=== PATIENT | male | born 2000 | race Caucasian/White ===

== ENCOUNTER 2021-04-06 12:58 | Inpatient (IN) ==
[2021-04-06 14:34] LABS: Basophils # (auto) 0.04 K/uL (0-0.2); Basophils % (auto) 0.3 %; Eosinophils # (auto) 0.24 K/uL (0-0.5); Eosinophils % (auto) 1.6 %; Hematocrit (blood only) 43.8 % (42-52); Hemoglobin 15.2 g/dL (14.0-18.0); Immature Granulocytes # (auto) 0.07 K/uL (0.00-0.02); Immature Granulocytes % (auto) 0.5 %; Lymphocytes # (auto) 3.97 K/uL (1.2-3.4); Lymphocytes % (auto) 26.8 %; Mean Corpuscular Hemoglobin 29.6 pg (25-34); Mean Corpuscular Hgb Conc 34.7 g/dL (32-36); Mean Corpuscular Volume 85.4 fL (80-100); Monocytes # (auto) 1.07 K/uL (0.11-0.59); Monocytes % (auto) 7.2 %; Neutrophils # (auto) 9.44 K/uL (1.4-6.5); Neutrophils % (auto) 63.6 %; Platelet Count 404 K/uL (130-400); RDW Coefficient of Variation 12.3 % (11.5-14.5); RDW Standard Deviation 37.9 fL (36.4-46.3); Red Blood Count 5.13 M/uL (4.7-6.1); White Blood Count 14.83 K/uL (4.8-10.8)
[2021-04-06 14:49] LABS: Albumin Level 3.5 gm/dl (3.4-5.0); BUN Creatinine Ratio 9.4 (10-20); Calcium 8.7 mg/dl (8.5-10.1); Creatinine Clr Calc Pharmacy 106.3 ml/min; Est GFR (African American) 77.8 ml/min; Est GFR (Non-African American) 67.2 ml/min
[2021-04-06 14:52] LABS: Acetaminophen < 2 ug/ml (10-30); Albumin Globulin Ratio 0.8 (0.9-2); Bilirubin,Total 0.3 mg/dl (0.2-1); Globulin 4.2 gm/dl (2.5-4.0); Salicylate < 1.7 mg/dl (2.8-20); Total Protein 7.7 gm/dl (6.4-8.2)
[2021-04-06] MEDS ORDERED: LIDOCAINE/EPINEPH/TETRACAINE 1 EA SYR EXT STA (14:57)
[2021-04-06] MEDS ORDERED: DIPHTHERIA/TETANUS/PERTUSSIS 0.5 ML SYR/VIAL IM ONE (15:01)
[2021-04-06] MEDS ORDERED: XYLOCAINE 1%/SOD BICARB 20 ML VIAL INFIL ONE (15:08)
[2021-04-06 15:44] LABS: Appearance Urine Clear (Clear); Bilirubin Urine Negative (Negative); Blood Urine Negative (Negative); Color Urine Yellow; Glucose Urine UA Negative (Negative); Ketones Urine Negative (Negative); Leukocyte Esterase Urine Negative (Negative); Nitrite Urine Negative (Negative); Protein Urine Negative (Negative); Specific Gravity Urine 1.021 (1.000-1.030); Urobilinogen Urine Negative (Negative)
[2021-04-06 16:19] LABS: Amphetamines+Metham, Urine Neg (Neg); Barbiturates, Urine Neg (Neg); Benzodiazepine, Urine Neg (Neg); Cocaine, Urine Neg (Neg); MDMA (Ecstacy), Urine Neg (Neg); Methadone, Urine Neg (Neg); Opiate, Urine Neg (Neg); Phencyclidine, Urine Neg (Neg)
--- NOTE | 2021-04-06 16:34 | Emergency Department Note ---
Impression & Plan Mood disorder, Intentional hydroxyzine overdose, Laceration of left forearm, Multiple abrasions ED Provider Note INFORMANT: Patient ED PROVIDER(S): Lopez Marino MD CHIEF COMPLAINT: Mental health evaluation PLAN: Disposition: Admitted to 3 S. Condition: Good Outpatient prescription management: none Referral: None MEDICAL DECISION MAKING: Patient presented because of need for mental health evaluation. He had cut himself and took an intentional overdose. Poison control was consulted and they recommended 6 hours of observation. Patient was hemodynamically stable for this time. His work-up including ECG and blood work was unremarkable except for a mild leukocytosis which I suspect is a stress response. Patient drug screen did reveal marijuana.. The patient had his laceration repaired by DAVINA Capellan. Please see his note. Patient was evaluated by the ER psychiatric caser up. Inpatient treatment was recommended. The patient was voluntary. Consultation was made with 3 S. Patient was evaluated and admitted for further management. Triage Nursing notes reviewed and agree them. Vital Signs: reviewed and remarkable for no significant abnormalities Differential diagnosis: Mood disorder, infection, hypoglycemia, electrolyte abnormalities, cardiac sources, intracerebral event, toxicologic, trauma, neurologic, as well as other pathologies. Diagnostics interpreted by me: ECG: Twelve-lead ECG revealed normal sinus rhythm at [address] elevation or depression. No PACs or PVCs. QTc interval 446 ms. Normal axis. Cardiac Monitoring: Cardiac monitoring ordered by me: The patient was placed on continuous cardiac monitoring and observed. It revealed a normal sinus rhythm at 69 beats per minute without ectopy or evidence of dysrhythmia. Imaging studies: Deferred HPI: The patient is a 20 year old male who presents to the Emergency Room with complaints of mental health evaluation. This started today and is described as the patient seeming depressed. He was found in the field by friends and cut his left forearm and right face with a box spinner. The patient also states he took 10 hydroxyzine. He feels like there is no point to anything. He was not sure if he was trying to harm himself exactly and is vague on that information. Patient has a history of anxiety and depression but no hospitalizations. The patient also notes the following associated symptoms, none. The patient has been given no medication for relieving factors. Current pain is rated as 0/10. Denies alcohol or drug use. No other ingestions. Pt denies LOC, headache, feve rs, chills, diaphoresis, visual changes, neck pain, chest pain, breathing difficulties, nausea, vomiting, abdominal pain, back pain, melena, hematochezia, urinary symptoms, numbness, weakness, lymphadenopathy, rash, or other complaints. ROS: See above HPI for pertinent positives & negatives. A total of 10 systems reviewed and were otherwise negative. PAST MEDICAL HISTORY:See Below , anxiety, depression PAST SURGICAL HISTORY:See Below, FAMILY HISTORY:See Below SOCIAL HISTORY:See Below, denies alcohol use HOME MEDICATIONS:See Below ALLERGIES:See Below VITALS:See Below PHYSICAL EXAMINATION: GENERAL: Awake, alert, depressed-appearing, in no distress HENT: Normocephalic, atraumatic except to superficial scratches to the right cheek. Oropharynx unremarkable. EYES: Normal conjunctiva. Sclera non-icteric. NECK: Inspection normal. Non-tender. Supple. No nuchal rigidity. FROM. No masses. RESPIRATORY: Clear to auscultation. No wheezes. No rales. Normal respiratory effort. CARDIAC: Normal rate. Normal rhythm. No murmurs. No rubs. Extremities warm and well perfused. Pulses equal. No JVD. GI: Soft, non-distended. No tenderness to palpation. No rebound or guarding. No masses. RECTAL: Deferred. MUSCULOSKELETAL: Multiple linear abrasions that are superficial on the left forearm. 1 deep laceration noted across the left forearm. chest examination reveals no tenderness. The back is symmetrical on inspection without obvious abnormality. There is no CVA tenderness to palpation. No joint edema. LOWER EXTREMITIES: Calves are equal size bilaterally and non-tender. No edema. No discoloration. NEURO: Normal sensorium. No sensory or motor deficits noted. SKIN: No rash or jaundice noted. PSYCH: No HI. Depressed mood and flat affect. Vague SI. Lopez Marino MD Past Med/Surg History Social History Smoking Status: Never smoker Preferred Language: Yakut Communication Ability: Effective Beliefs That Will Affect Care: None Feels Safe at Home: Yes Assistive Devices: None Allergies Allergies Allergy/AdvReac Type Severity Reaction Status Date / Time cephalexin AdvReac Intermediate GI Verified 05/16/13 19:54 UPSET/DIARRHEA [id number] Allergy Unknown Unknown Uncoded 04/06/21 16:51 Home Meds Home Medications Medication Instructions Recorded Confirmed No Known Home Medications 04/06/21 04/06/21 Results & Data (ED) Vital Signs Vital Signs - 24 hr 04/06/21 13:03 04/06/21 13:05 04/06/21 13:31 Pulse Rate 105 H 82 Pulse Rate from SpO2 Sensor 106 H 84 Pulse Rhythm Respiratory Rate 17 21 Blood Pressure 168/95 H 119/64 Blood Pressure Mean 119 82 Pulse Oximetry 96 96 Oxygen Delivery Method Room Air Room Air Sepsis Recent Fever Within 48 Hours No Sepsis New/Unexplained Change in Mental Status No Sepsis Action Taken by Nursing No Action Required 04/06/21 14:00 04/06/21 14:02 04/06/21 15:00 Pulse Rate 71 71 63 Pulse Rate from SpO2 Sensor 71 65 Pulse Rhythm Regular Respiratory Rate 15 18 23 Blood Pressure 131/77 132/86 Blood Pressure Mean 95 101 Pulse Oximetry 96 95 98 Oxygen Delivery Method Room Air Room Air Sepsis Recent Fever Within 48 Hours Sepsis New/Unexplained Change in Mental Status Sepsis Action Taken by Nursing 04/06/21 15:30 04/06/21 16:00 04/06/21 16:30 Pulse Rate 67 64 58 L Pulse Rate from SpO2 Sensor 66 64 58 L Pulse Rhythm Respiratory Rate 16 20 16 Blood Pressure 144/90 H 139/74 131/72 Blood Pressure Mean 108 95 91 Pulse Oximetry 100 98 97 Oxygen Delivery Method Sepsis Recent Fever Within 48 Hours Sepsis New/Unexplained Change in Mental Status Sepsis Action Taken by Nursing 04/06/21 17:00 04/06/21 17:30 04/06/21 18:00 Pulse Rate 64 55 L 74 Pulse Rate from SpO2 Sensor 62 56 L 76 Pulse Rhythm Respiratory Rate 19 18 18 Blood Pressure 134/66 130/62 127/73 Blood Pressure Mean 88 84 91 Pulse Oximetry 97 97 96 Oxygen Delivery Method Sepsis Recent Fever Within 48 Hours Sepsis New/Unexplained Change in Mental Status Sepsis Action Taken by Nursing 04/06/21 18:30 Pulse Rate 65 Pulse Rate from SpO2 Sensor 66 Pulse Rhythm Respiratory Rate 19 Blood Pressure 120/63 Blood Pressure Mean 82 Pulse Oximetry 98 Oxygen Delivery Method Sepsis Recent Fever Within 48 Hours Sepsis New/Unexplained Change in Mental Status Sepsis Action Taken by Nursing Laboratory Data Result diagrams: 04/06/21 14:05 04/06/21 14:05 Lab Results 04/06/21 04/06/21 04/06/21 Range/Units 14:05 14:05 14:05 WBC 14.83 H (4.8-10.8) K/uL RBC 5.13 (4.7-6.1) M/uL Hgb 15.2 (14.0-18.0) g/dL Hct 43.8 (42-52) % MCV 85.4 (80-100) fL MCH 29.6 (25-34) pg MCHC 34.7 (32-36) g/dL RDW Std Deviation 37.9 (36.4-46.3) fL RDW Coeff of Dang 12.3 (11.5-14.5) % Plt Count 404 H (130-400) K/uL MPV 10.0 (7.4-10.4) fL Immature Gran % (Auto) 0.5 % Neut % (Auto) 63.6 % Lymph % (Auto) 26.8 % [place] % (Auto) 7.2 % Eos % (Auto) 1.6 % Baso % (Auto) 0.3 % Neut # (Auto) 9.44 H (1.4-6.5) K/uL Lymph # (Auto) 3.97 H (1.2-3.4) K/uL [place] # (Auto) 1.07 H (0.11-0.59) K/uL Eos # (Auto) 0.24 (0-0.5) K/uL Baso # (Auto) 0.04 (0-0.2) K/uL Immature Gran # (Auto) 0.07 H (0.00-0.02) K/uL Sodium 138 (136-145) mmol/L Potassium 4.0 (3.5-5.1) mmol/L Chloride 106 (98-107) mmol/L Carbon Dioxide 25 (21-32) mmol/L Anion Gap 7.0 (3-11) BUN 14 (7-18) mg/dl Creatinine 1.48 H (0.6-1.4) mg/dl Est Cr Clr Drug Dosing 106.3 ml/min Est GFR ( Amer) 77.8 ml/min Est GFR (Non-Af Amer) 67.2 ml/min BUN/Creatinine Ratio 9.4 L (10-20) Glucose 88 (70-99) mg/dl Calcium 8.7 (8.5-10.1) mg/dl Total Bilirubin 0.3 (0.2-1) mg/dl AST 25 (15-37) U/L ALT 54 (12-78) U/L Alkaline Phosphatase 83 (45-117) U/L Total Protein 7.7 (6.4-8.2) gm/dl Albumin 3.5 (3.4-5.0) gm/dl Globulin 4.2 H (2.5-4.0) gm/dl Albumin/Globulin Ratio 0.8 L (0.9-2) Urine Color Urine Appearance (Clear) Urine pH (4.5-7.5) Ur Specific [place] (1.000-1.030) Urine Protein (Negative) Urine Glucose (UA) (Negative) Urine Ketones (Negative) Urine Blood (Negative) Urine Nitrite (Negative) Urine Bilirubin (Negative) Urine Urobilinogen (Negative) Ur Leukocyte Esterase (Negative) Salicylates < 1.7 L (2.8-20) mg/dl Urine Opiates Screen (Neg) Ur Methadone, Qual (Neg) Acetaminophen < 2 L (10-30) ug/ml Urine Barbiturates (Neg) Ur Phencyclidine (PCP) (Neg) U Amphetamin/Meth Scrn (Neg) MDMA (Ecstasy) Screen (Neg) U Benzodiazepines Scrn (Neg) Ur Cocaine Metabolite (Neg) U Marijuana (THC) Screen (Neg) Ethyl Alcohol mg/dL (0-3) mg/dl 04/06/21 04/06/21 04/06/21 Range/Units 14:05 15:15 15:15 WBC (4.8-10.8) K/uL RBC (4.7-6.1) M/uL Hgb (14.0-18.0) g/dL Hct (42-52) % MCV (80-100) fL MCH (25-34) pg MCHC (32-36) g/dL RDW Std Deviation (36.4-46.3) fL RDW Coeff of Dang (11.5-14.5) % Plt Count (130-400) K/uL MPV (7.4-10.4) fL Immature Gran % (Auto) % Neut % (Auto) % Lymph % (Auto) % [place] % (Auto) % Eos % (Auto) % Baso % (Auto) % Neut # (Auto) (1.4-6.5) K/uL Lymph # (Auto) (1.2-3.4) K/uL [place] # (Auto) (0.11-0.59) K/uL Eos # (Auto) (0-0.5) K/uL Baso # (Auto) (0-0.2) K/uL Immature Gran # (Auto) (0.00-0.02) K/uL Sodium (136-145) mmol/L Potassium (3.5-5.1) mmol/L Chloride (98-107) mmol/L Carbon Dioxide (21-32) mmol/L Anion Gap (3-11) BUN (7-18) mg/dl Creatinine (0.6-1.4) mg/dl Est Cr Clr Drug Dosing ml/min Est GFR ( Amer) ml/min Est GFR (Non-Af Amer) ml/min BUN/Creatinine Ratio (10-20) Glucose (70-99) mg/dl Calcium (8.5-10.1) mg/dl Total Bilirubin (0.2-1) mg/dl AST (15-37) U/L ALT (12-78) U/L Alkaline Phosphatase (45-117) U/L Total Protein (6.4-8.2) gm/dl Albumin (3.4-5.0) gm/dl Globulin (2.5-4.0) gm/dl Albumin/Globulin Ratio (0.9-2) Urine Color Yellow Urine Appearance Clear (Clear) Urine pH 6.0 (4.5-7.5) Ur Specific [place] 1.021 (1.000-1.030) Urine Protein Negative (Negative) Urine Glucose (UA) Negative (Negative) Urine Ketones Negative (Negative) Urine Blood Negative (Negative) Urine Nitrite Negative (Negative) Urine Bilirubin Negative (Negative) Urine Urobilinogen Negative (Negative) Ur Leukocyte Esterase Negative (Negative) Salicylates (2.8-20) mg/dl Urine Opiates Screen Neg (Neg) Ur Methadone, Qual Neg (Neg) Acetaminophen (10-30) ug/ml Urine Barbiturates Neg (Neg) Ur Phencyclidine (PCP) Neg (Neg) U Amphetamin/Meth Scrn Neg (Neg) MDMA (Ecstasy) Screen Neg (Neg) U Benzodiazepines Scrn Neg (Neg) Ur Cocaine Metabolite Neg (Neg) U Marijuana (THC) Screen Pos H (Neg) Ethyl Alcohol mg/dL < 3.0 (0-3) mg/dl Administered Medications Lorazepam (Lorazepam 0.5 Mg Tab) 0.5 mg PO Q8 PRN PRN Reason: Anxiety Stop: 05/06/21 20:06 Last Admin: 04/06/21 20:55 Dose: 0.5 mg Documented by: [id number] Discontinued Medications Diphtheria/Pertussis/Tetanus Vacc (Diphtheria/Tetanus/Pertussis 0.5 Ml Syr/Vial) 0.5 ml IM .ONCE ONE Stop: 04/06/21 15:02 Last Admin: 04/06/21 15:37 Dose: 0.5 ml Documented by: [id number] Lidocaine (Lidocaine/Epineph/Tetracaine 1 Ea Syr) 1 ea EXT NOW STA Stop: 04/06/21 14:58 Last Admin: 04/06/21 18:56 Dose: Not Given Documented by: [id number] Lidocaine HCl (Xylocaine 1%/Sod Bicarb 20 Ml Vial) 20 ml INFIL NOW ONE Stop: 04/06/21 15:09 Last Admin: 04/06/21 15:38 Dose: 20 ml Documented by: [id number] Discharge Plan Visit Data Chief Complaint: Mental Health Evaluation Stated Complaint: OVERDOSE, MHID ED Provider: Lopez Marino Discharge Problem: Mood disorder, Intentional hydroxyzine overdose, Laceration of left forearm, Multiple abrasions Patient Disposition: Admitted As Inpatient Discharge Instructions Interventions: ED Discharge Assessment Last Done: 04/06/21 19:46
--- NOTE | 2021-04-06 16:42 | Emergency Department Note ---
ED Visit Note 20-year-old male who I was asked by Dr. Marnio, ED attending physician, to perform a left forearm laceration repair. The patient cut his arm with a razor. He does have a history of cutting. Please see Dr. Marino's dictation for further treatment and final disposition. PROCEDURE NOTE: Examination of the left forearm shows parallel linear lacerations, consistent with cutting. The proximal most laceration is 6 cm in length with mild gaping. No active bleeding or hematoma noted. Patient provided verbal consent for laceration repair under local anesthesia. Using buffered lidocaine 1% without epinephrine, good local anesthesia was administered. Peripheral tissue was then cleansed with iodine, then the wound was irrigated with normal saline. Exploration of the wound does not show any obvious involvement of the underlying musculature or tendons. The wound was then approximated using running 4-0 nylon, occasionally interrupted sutures. The patient tolerated the procedure well with minimal blood loss.
[2021-04-06] MEDS ORDERED: ACETAMINOPHEN 325 MG TAB PO PRN (19:33)
[2021-04-06] MEDS ORDERED: BISMUTH SUBSALICYLATE LIQD 236 ML PO PRN (19:33)
[2021-04-06] MEDS ORDERED: MAGNESIUM HYDROXIDE SUSP 30 ML UDC PO PRN (19:33)
[2021-04-06] MEDS ORDERED: ALUMINUM/MAGNESIUM SUSP 30 ML UDC PO PRN (19:33)
[2021-04-06] MEDS ORDERED: hydrOXYzine HCl 25 MG TAB PO PRN ×2 (19:33)
[2021-04-06] MEDS ORDERED: SODIUM CHLORIDE 0.65% NA SOLN 45 ML (OCEAN) PRN (19:33)
[2021-04-06] MEDS ORDERED: LORazepam 0.5 MG TAB PO PRN (20:07)
[2021-04-07] MEDS ORDERED: LORazepam 1 MG TAB PO PRN (13:48)
[2021-04-07] MEDS ORDERED: FLUoxetine HCL 10 MG CAP PO ONE (14:15)
--- NOTE | 2021-04-07 15:14 | Electrocardiogram Report ---
Test Reason : Blood Pressure : / mmHG Vent. Rate : 075 BPM Atrial Rate : 075 BPM P-R Int : 142 ms QRS Dur : 088 ms QT Int : 400 ms P-R-T Axes : 043 013 033 degrees QTc Int : 446 ms Normal sinus rhythm Normal ECG No previous ECGs available Confirmed by Terrance Forde ([id number]) on 04/07/2021 3:14:36 PM Referred By: Confirmed By:Rainer Forde
--- NOTE | 2021-04-07 15:49 | History & Physical ---
Date of Service April 07, 2021 Impression / Recommendations Impression This is a 20-year-old male with history of anxiety depression who presents to our services following a suicide attempt. It appears that patient may have an OCD-like component to his mental issues at this time. He is agreeable to start Prozac medication and titrate up to higher dosages. (1) Mood disorder: The patient was admitted to the [facility] ([facility]) on every 15 minute checks (behavioral with suicide precautions for safety. The patient will participate in group, recreational, and milieu therapies and will be offered additional individual and family sessions as clinically appropriate. 04/07/2021we will start patient on 10 mg of Prozac today, increase to 20 mg p.o. every morning tomorrow. We will also add lorazepam to her regimen on a as needed basis to address his anxiety while up titrating the dose of SSRI. Protective Factors Assessment Employed: Yes Psychiatric History Identifying Data ACOSTA KENT is a 20-year-old M who currently lives in [place] with his father, has a history of anxiety and depression, and was admitted on 04/06/21 19:33 on a 201 voluntary commitment for suicide attempt. Chief Complaint "I was having a lot of anxious thoughts". History of Present Illness HPI as per case management " Met with Officer Anny of [facility], reports police were called to the community health's residence because of an overdose. Officer requested to complete petitioning statement, signing Box A and it reads as follows: "04/06/21 at 12:27PM I received a police 911 call from Acosta Kent's friend named Terell Almonte. Suzy received a text message from Westley stating he overdosed on medication. I then met with Westley at his residence. Westley appeared groggy and confused. He said he had taken medication (I did not hear what the medication was). Westley also had bloody cuts on his right cheek that he said he made with a slip box changer." Met with the patient to complete Psychiatric Mental Health Evaluation. The patient admits his overdose and cutting his arm were suicidal gestures (scored a 9 on his Suicide Assessment). He reports stressor of work (started at [employer] about a week ago) and reports depressive symptom of anhedonia. The patient reports poor appetite and sleep (reports has always been a bad sleeper) and couldnt quantify the symptoms or number of hours of sleep he gets each night. He reports he will also sleep during the day which affects his sleep at night. The patient reports daily but not constant anxiety and reports he really cant describe how he feels when hes anxious (reports less often than daily panic attacks). The patient denies hallucinations and delusional thinking, drug and alcohol use (tested positive for marijuana), smoking, homicidal ideation and history of abuse. The patient reports having providers through [facility] (used to see Cameron Arvizu but she left and sees Nikki for therapy). Dr. Marino updated and recommendation is for inpatient treatment. Spoke with the patient and he is willing for treatment at this time." Upon evaluation this morning, patient endorses the above information is accurate. He states that he is always struggled with social anxiety from a young age. 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 He reports waking up having felt anxious, and began cutting his arm which point one of the cuts became too deep, at that point patient felt that he was no longer in control and may due to the cut, he then went on to swallow 10 tablets of Vistaril medication. Patient then offered to complete the statement that he had been researching overdoses on Vistaril and the potential for it to put him into a coma. Patient states he took the tablets all at the same time without drinking water. He is unable to identify a trigger for his anxiety, but he does state that he does have worrisome sense of behavior with the addition of some compulsions. Patient gives an example of "I will have known that I close the door, but will keep getting up to check to make sure that I closed the door." He goes on to add that he recognizes that his thoughts are not valid or logical, but reports that he is unable to not have them. He reports prior med trials with Zoloft, Lexapro, Wellbutrin. He reports poor response to these medications. He denies any psychosis or paranoia. He denies any manic symptoms. He denies any childhood trauma aside from some bullying in grade school. He reports a poor relationship with both of his parents as he states he does not talk to them much, but denies any active or ongoing issues. He denies any active substance use, reports using marijuana approximately once per month. Past Psychiatric History Current Psychiatric Diagnosis: mood disorder with intentional overdose Describe Attempts in the Past: Overdose and cutting today. Allergies Allergy/AdvReac Type Severity Reaction Status Date / Time cephalexin AdvReac Intermediate GI Verified 05/16/13 19:54 UPSET/DIARRHEA [id number] Allergy Unknown Unknown Uncoded 04/06/21 16:51 Home Medications Medication Instructions Recorded Confirmed Type hydroxyzine HCl 25 mg tablet 25 - 50 mg PO Q6 PRN 04/07/21 04/07/21 History Family History Family History of: Depression and Anxiety Family Mental Health History Comment: Mother Alcohol History Hx of Alcohol Use Over the Past 12 Months: No AUDIT Total Score: 0 Smoking Use Have You Smoked or Used Tobacco Products in the Last 30 Days: No Smoking Status: Never smoker Substance History Hx of Prescription Med Misuse Over the Past 12 Months: No Hx of Over the Counter Med Misuse Over the Past 12 Months: No Hx of Inhalent Misuse Over the Past 12 Months: No Hx of Organic Substance Use Over the Past 12 Months: Yes (Tested positive for marijuana) Hx of Illegal Substances/Street Drug Use Over Past 12 Months: No Problems as a Result of Past Substance Use: None Identified Personal History Living Arrangements: Home Highest Grade Completed: High School Graduate Marital Status: Single Beliefs That Will Affect Care: None Patient History Social History Smoking Status: Never smoker Preferred Language: Finnish Communication Ability: Effective Beliefs That Will Affect Care: None Feels Safe at Home: Yes Assistive Devices: None Review of Systems Review of Systems: All systems reviewed & are unremarkable except as noted in HPI & below Physical Exam Psychiatric: Orientation: alert and oriented x 3 Apperance: appropriately dressed and appropriately groomed Eye Contact: good eye contact Motor Behavior: no abnormal motor movements Speech: normal rate/rhythm/volume of speech Affect: + depressed affect, + anxious affect and + flat affect Mood: + depressed mood and + anxious mood Thought Process: linear/logical thought process and + perseveration Thought Content: + obsessions, reality based without delusions and + compulsions Suicidal Thoughts: denies suicidal thoughts Homicidal Thoughts: denies homicidal thoughts Hallucinations: no auditory hallucinations and no visual hallucinations Cognition: recent memory grossly intact Estimated Intelligence: average estimated intelligence and consistent with education level Insight: + fair insight Judgement: + poor judgement Vital Signs (Past 24 Hours): Last Vital Signs Temp 36.8 C 04/07/21 06:41 Pulse 62 04/07/21 06:42 Resp 16 04/07/21 06:41 BP 130/87 04/07/21 06:42 Pulse Ox 98 04/06/21 18:30 Exam Statement: A physical exam was performed in the ER prior to admission to the unit by Dr Marino. I accept that physical as correct/medical clearance for the inpatient physical exam. Results & Data ([facility]) Laboratory Results Laboratory Results - last 24 hr 04/06/21 04/06/21 04/06/21 15:15 15:15 15:15 Urine Color Yellow Urine Appearance Clear Urine pH 6.0 Ur Specific [place] 1.021 Urine Protein Negative Urine Glucose (UA) Negative Urine Ketones Negative Urine Blood Negative Urine Nitrite Negative Urine Bilirubin Negative Urine Urobilinogen Negative Ur Leukocyte Esterase Negative Urine Opiates Screen Neg Ur Methadone, Qual Neg Urine Barbiturates Neg Ur Phencyclidine (PCP) Neg U Amphetamin/Meth Scrn Neg MDMA (Ecstasy) Screen Neg U Benzodiazepines Scrn Neg Ur Cocaine Metabolite Neg U Marijuana (THC) Screen Pos H U Marijuana THC Carboxy Pending Drug Screen Comment Pending COVID-19 Eval Order SARS-CoV-2 (PCR) 04/06/21 04/06/21 04/06/21 Unknown Unknown Unknown Urine Color Urine Appearance Urine pH Ur Specific [place] Urine Protein Urine Glucose (UA) Urine Ketones Urine Blood Urine Nitrite Urine Bilirubin Urine Urobilinogen Ur Leukocyte Esterase Urine Opiates Screen Ur Methadone, Qual Urine Barbiturates Ur Phencyclidine (PCP) U Amphetamin/Meth Scrn MDMA (Ecstasy) Screen U Benzodiazepines Scrn Ur Cocaine Metabolite U Marijuana (THC) Screen U Marijuana THC Carboxy Drug Screen Comment COVID-19 Eval Order Pending Cancelled SARS-CoV-2 (PCR) NEGATIVE Current Inpatient Medications Current Inpatient Medications: Current Inpatient Medications Acetaminophen (Acetaminophen 325 Mg Tab) 650 mg PO Q4H PRN PRN Reason: Headache or Minor Fever Stop: 05/06/21 19:32 Al Hydrox/Mg Hydrox/Simethicone (Aluminum/Magnesium Susp 30 Ml Udc) 30 ml PO Q4H PRN PRN Reason: GI Upset Stop: 05/06/21 19:32 Bismuth Subsalicylate (Bismuth Subsalicylate Liqd 236 Ml) 15 ml PO PRN PRN PRN Reason: Loose Stool Stop: 05/06/21 19:32 Fluoxetine HCl (Fluoxetine Hcl 20 Mg Cap) 20 mg PO QAM FRANNY Stop: 05/08/21 08:59 Lorazepam (Lorazepam 1 Mg Tab) 1 mg PO Q8H PRN PRN Reason: Anxiety Stop: 05/07/21 13:47 Magnesium Hydroxide (Magnesium Hydroxide Susp 30 Ml Udc) 30 ml PO DAILY PRN PRN Reason: Constipation Stop: 05/06/21 19:32 Sodium Chloride (Sodium Chloride 0.65% Na Soln 45 Ml ([place])) 1 - 2 sprays NA PRN PRN PRN Reason: Nasal Dryness/Congestion Stop: 05/06/21 19:32
[2021-04-08] MEDS: FLUoxetine HCL 20 MG CAP PO SCH (09:00)
--- NOTE | 2021-04-08 19:07 | Psychiatric Progress Note ---
Date of Service April 08, 2021 Impression / Recommendations Impression as per Dr. Rivers: This is a 20-year-old male with history of anxiety depression who presents to our services following a suicide attempt. It appears that patient may have an OCD-like component to his mental issues at this time. He is agreeable to start Prozac medication and titrate up to higher dosages. 04/08/21: reports resolution of SI, need family meeting and work on safety planning, doesn't voice regret as actually "better since this happened" (1) Mood disorder: 04/08/21--continue current meds and treatment plan. Reviewed care by Dr. Rivers in italics: The patient was admitted to the [facility] ([facility]) on every 15 minute checks (behavioral with suicide precautions for safety. The patient will participate in group, recreational, and milieu therapies and will be offered additional individual and family sessions as clinically appropriate. 04/07/2021we will start patient on 10 mg of Prozac today, increase to 20 mg p.o. every morning tomorrow. We will also add lorazepam to her regimen on a as needed basis to address his anxiety while up titrating the dose of SSRI. Protective Factors Assessment Employed: Yes Interval History Identifying Information 20 yo male admit on 04/06 on a 201 commitment s/p Vistaril OD. Chief Complaint "I was like immediately better and now I'm homesick". Review of Systems Sleep Information Total Hours of Sleep: 6.5 Meal Information Percent Meal Consumed - Breakfast: 90 Percent Meal Consumed - Lunch: 90 Percent Meal Consumed - Dinner: 90 Subjective Subjective Patient was seen & assessed and interval progress reviewed with nursing and social work. Denies urge to cut, scratch on face healing. Denies fogginess/residual anticholintergic effects from Vistaril. He reports groups are repetitive/redundant with patient handbook. Tolerating Prozac. Denies compulsions. States that he worries about how he'll deal with family and friends upon discharge given his perception of their perceived stigma around mental health. Lives with dad but is requesting meeting with mother for support. Again states only tried Kratom once, doesn't plan to use again, similar for recent MJ. Tolerating Prozac with slight MICHEL that may be more related to caffeine withdrawal. Physical Exam Psychiatric Orientation: alert and oriented x 3 Apperance: appropriately dressed and appropriately groomed Eye Contact: good eye contact Motor Behavior: no abnormal motor movements Speech: normal rate/rhythm/volume of speech Affect: + depressed affect Mood: + depressed mood Thought Process: linear/logical thought process Thought Content: reality based without delusions Suicidal Thoughts: denies suicidal thoughts Homicidal Thoughts: denies homicidal thoughts Hallucinations: no auditory hallucinations and no visual hallucinations Cognition: recent memory grossly intact Estimated Intelligence: average estimated intelligence and consistent with education level Insight: + limited insight Judgement: + poor judgement Vital Signs (Past 24 Hours) Last Vital Signs Temp 36.6 C 04/08/21 06:31 Pulse 70 04/08/21 06:31 Resp 18 04/08/21 06:31 BP 116/81 04/08/21 06:31 Pulse Ox 98 04/06/21 18:30 Results & Data ([facility]) Current Inpatient Medications Current Inpatient Medications: Current Inpatient Medications Acetaminophen (Acetaminophen 325 Mg Tab) 650 mg PO Q4H PRN PRN Reason: Headache or Minor Fever Stop: 05/06/21 19:32 Last Admin: 04/08/21 09:00 Dose: 650 mg Documented by: Al Hydrox/Mg Hydrox/Simethicone (Aluminum/Magnesium Susp 30 Ml Udc) 30 ml PO Q4H PRN PRN Reason: GI Upset Stop: 05/06/21 19:32 Bismuth Subsalicylate (Bismuth Subsalicylate Liqd 236 Ml) 15 ml PO PRN PRN PRN Reason: Loose Stool Stop: 05/06/21 19:32 Fluoxetine HCl (Fluoxetine Hcl 20 Mg Cap) 20 mg PO QAM FRANNY Stop: 05/08/21 08:59 Last Admin: 04/08/21 09:00 Dose: 20 mg Documented by: Lorazepam (Lorazepam 1 Mg Tab) 1 mg PO Q8H PRN PRN Reason: Anxiety Stop: 05/07/21 13:47 Magnesium Hydroxide (Magnesium Hydroxide Susp 30 Ml Udc) 30 ml PO DAILY PRN PRN Reason: Constipation Stop: 05/06/21 19:32 Sodium Chloride (Sodium Chloride 0.65% Na Soln 45 Ml ([place])) 1 - 2 sprays NA PRN PRN PRN Reason: Nasal Dryness/Congestion Stop: 05/06/21 19:32 Mental Health & Subst Abuse Tx Therapist Name of Therapist: Gayle Lyman
[2021-04-09] MEDS: FLUoxetine HCL 20 MG CAP PO SCH (08:47)
[2021-04-09 12:11] LABS: Marijuana Quant, GCMS Urine 35 ng/mL (<5)
--- NOTE | 2021-04-09 16:25 | Discharge Summary ---
Date of Service April 09, 2021 History of Present Illness As per admitting psychiatrist Dr. Rivers: HPI as per case management " Met with Officer Anny of [facility], reports police were called to the patient's residence because of an overdose. Officer requested to complete petitioning statement, signing Box A and it reads as follows: "04/06/21 at 12:27PM I received a police 911 call from Acosta Christy's friend named Terell Almonte. Suzy received a text message from Westley stating he overdosed on medication. I then met with Westley at his residence. Westley appeared groggy and confused. He said he had taken medication (I did not hear what the medication was). Westley also had bloody cuts on his right cheek that he said he made with a box feeder." Met with the patient to complete Psychiatric Mental Health Evaluation. The patient admits his overdose and cutting his arm were suicidal gestures (scored a 9 on his Suicide Assessment). He reports stressor of work (started at [employer] about a week ago) and reports depressive symptom of anhedonia. The patient reports poor appetite and sleep (reports has always been a bad sleeper) and couldnt quantify the symptoms or number of hours of sleep he gets each night. He reports he will also sleep during the day which affects his sleep at night. The patient reports daily but not constant anxiety and reports he really cant describe how he feels when hes anxious (reports less often than daily panic attacks). The patient denies hallucinations and delusional thinking, drug and alcohol use (tested positive for marijuana), smoking, homicidal ideation and history of abuse. The patient reports having providers through [employer] (used to see Cameron Arvizu but she left and sees Nikki for therapy). Dr. Marino updated and recommendation is for inpatient treatment. Spoke with the patient and he is willing for treatment at this time." Upon evaluation this morning, patient endorses the above information is accurate. He states that he is always struggled with social anxiety from a young age. 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 He reports waking up having felt anxious, and began cutting his arm which point one of the cuts became too deep, at that point patient felt that he was no longer in control and may due to the cut, he then went on to swallow 10 tablets of Vistaril medication. Patient then offered to complete the statement that he had been researching overdoses on Vistaril and the potential for it to put him into a coma. Patient states he took the tablets all at the same time without drinking water. He is unable to identify a trigger for his anxiety, but he does state that he does have worrisome sense of behavior with the addition of some compulsions. Patient gives an example of "I will have known that I close the door, but will keep getting up to check to make sure that I closed the door." He goes on to add that he recognizes that his thoughts are not valid or logical, but reports that he is unable to not have them. He reports prior med trials with Zoloft, Lexapro, Wellbutrin. He reports poor response to these medications. He denies any psychosis or paranoia. He denies any manic symptoms. He denies any childhood trauma aside from some bullying in grade school. He reports a poor relationship with both of his parents as he states he does not talk to them much, but denies any active or ongoing issues. He denies any active substance use, reports using marijuana approximately once per month. Physical Exam Mental Examination See admission H&P and DOD summary. Vital Signs (Past 24 Hours) Last Vital Signs Temp 36.9 C 04/09/21 13:55 Pulse 69 04/09/21 13:55 Resp 18 04/09/21 13:55 BP 152/89 H 04/09/21 13:55 Pulse Ox 98 04/09/21 13:55 Principal Diagnosis depressive disorder Psychiatric Data See daily stay summary. In short, safety was maintained and the patient was aaron perficially cooperative with care but found groups countertherapeutic. Medication changes included trial of Prozac and they tolerated this well. He initially presented as rather obsessive in nature re: his social anxiety and titration to a higher dose was anticipated but the patient is adamant that he be discharged today. He has consistently denied SI throughout his stay and does not meet ongoing criteria for an involuntary commitment as no babar or psychosis interfering with his medical decision making. A family session was held with his mother and safety plan was completed prior to discharge. His mother confirmed she cleaned out his room at [facility] of all remaining Vistaril and meds will be secured. She will only give him 1 week supply of prescription med and will meet with father upon transition home. She confirmed no access to weapons. Patient was aware that we recommended ongoing stay until at least tomorrow to confirm his outpatient appointments with [facility] but he is refusing. Mother reports canceling his appointment with Brittney singh due to this hospitalization and will assist with rescheduling. We are unable to confirm the last time he saw his therapist and if he is an active patient. Mother denies knowledge of closure and although wishes he would engage in more treatment here, ultimately supported his decision per social work and is picking him up. Day of Discharge Assessment Today the patient voices readiness for discharge. They note improvement in mood and deny thoughts to harm self or others. Thoughts remain organized and they are improved from admission. There is no evidence of psychosis. They agree to take mediations as prescribed and keep follow-up appointments. They are stable for discharge to outpatient level of care. Transition of Care Transition Of Care Record: was reviewed with the patient Advance Directives Advance Directives Information Provided: Yes Advance Directives: No Mental Health Advance Directive: No Advance Directives on File: No Living Will: No Power of Stock Car Driver: No Advance Directives Reason:: Declines as Mental Health Visit. Risk Factors Assessment Male: Yes : Yes Do You Have Access To A Gun?: No Health Problems: No Mental Health Diagnoses: Yes Substance Use Disorders: No Previous Attempt: Yes Protective Factors Assessment Employed: Yes Supportive Family: Yes Total Time Total Time Spent: Greater Than 30 Minutes Total Time Includes: Examination of the patient, Discharge Planning and Medication Reconciliation Discharge Data Lab Results 04/06/21 04/06/21 04/06/21 14:05 14:05 14:05 WBC 14.83 H RBC 5.13 Hgb 15.2 Hct 43.8 MCV 85.4 MCH 29.6 MCHC 34.7 RDW Std Deviation 37.9 RDW Coeff of Dang 12.3 Plt Count 404 H MPV 10.0 Immature Gran % (Auto) 0.5 Neut % (Auto) 63.6 Lymph % (Auto) 26.8 [place] % (Auto) 7.2 Eos % (Auto) 1.6 Baso % (Auto) 0.3 Neut # (Auto) 9.44 H Lymph # (Auto) 3.97 H [place] # (Auto) 1.07 H Eos # (Auto) 0.24 Baso # (Auto) 0.04 Immature Gran # (Auto) 0.07 H Sodium 138 Potassium 4.0 Chloride 106 Carbon Dioxide 25 Anion Gap 7.0 BUN 14 Creatinine 1.48 H Est Cr Clr Drug Dosing 106.3 Est GFR ( Amer) 77.8 Est GFR (Non-Af Amer) 67.2 BUN/Creatinine Ratio 9.4 L Glucose 88 Calcium 8.7 Total Bilirubin 0.3 AST 25 ALT 54 Alkaline Phosphatase 83 Total Protein 7.7 Albumin 3.5 Globulin 4.2 H Albumin/Globulin Ratio 0.8 L Urine Color Urine Appearance Urine pH Ur Specific [place] Urine Protein Urine Glucose (UA) Urine Ketones Urine Blood Urine Nitrite Urine Bilirubin Urine Urobilinogen Ur Leukocyte Esterase Salicylates < 1.7 L Urine Opiates Screen Ur Methadone, Qual Acetaminophen < 2 L Urine Barbiturates Ur Phencyclidine (PCP) U Amphetamin/Meth Scrn MDMA (Ecstasy) Screen U Benzodiazepines Scrn Ur Cocaine Metabolite U Marijuana (THC) Screen U Marijuana THC Carboxy Drug Screen Comment Ethyl Alcohol mg/dL COVID-19 Eval Order SARS-CoV-2 (PCR) 04/06/21 04/06/21 04/06/21 14:05 15:15 15:15 WBC RBC Hgb Hct MCV MCH MCHC RDW Std Deviation RDW Coeff of Dang Plt Count MPV Immature Gran % (Auto) Neut % (Auto) Lymph % (Auto) [place] % (Auto) Eos % (Auto) Baso % (Auto) Neut # (Auto) Lymph # (Auto) [place] # (Auto) Eos # (Auto) Baso # (Auto) Immature Gran # (Auto) Sodium Potassium Chloride Carbon Dioxide Anion Gap BUN Creatinine Est Cr Clr Drug Dosing Est GFR ( Amer) Est GFR (Non-Af Amer) BUN/Creatinine Ratio Glucose Calcium Total Bilirubin AST ALT Alkaline Phosphatase Total Protein Albumin Globulin Albumin/Globulin Ratio Urine Color Yellow Urine Appearance Clear Urine pH 6.0 Ur Specific [place] 1.021 Urine Protein Negative Urine Glucose (UA) Negative Urine Ketones Negative Urine Blood Negative Urine Nitrite Negative Urine Bilirubin Negative Urine Urobilinogen Negative Ur Leukocyte Esterase Negative Salicylates Urine Opiates Screen Neg Ur Methadone, Qual Neg Acetaminophen Urine Barbiturates Neg Ur Phencyclidine (PCP) Neg U Amphetamin/Meth Scrn Neg MDMA (Ecstasy) Screen Neg U Benzodiazepines Scrn Neg Ur Cocaine Metabolite Neg U Marijuana (THC) Screen Pos H U Marijuana THC Carboxy Drug Screen Comment Ethyl Alcohol mg/dL < 3.0 COVID-19 Eval Order SARS-CoV-2 (PCR) 04/06/21 04/06/21 04/06/21 15:15 Unknown Unknown WBC RBC Hgb Hct MCV MCH MCHC RDW Std Deviation RDW Coeff of Dang Plt Count MPV Immature Gran % (Auto) Neut % (Auto) Lymph % (Auto) [place] % (Auto) Eos % (Auto) Baso % (Auto) Neut # (Auto) Lymph # (Auto) [place] # (Auto) Eos # (Auto) Baso # (Auto) Immature Gran # (Auto) Sodium Potassium Chloride Carbon Dioxide Anion Gap BUN Creatinine Est Cr Clr Drug Dosing Est GFR ( Amer) Est GFR (Non-Af Amer) BUN/Creatinine Ratio Glucose Calcium Total Bilirubin AST ALT Alkaline Phosphatase Total Protein Albumin Globulin Albumin/Globulin Ratio Urine Color Urine Appearance Urine pH Ur Specific [place] Urine Protein Urine Glucose (UA) Urine Ketones Urine Blood Urine Nitrite Urine Bilirubin Urine Urobilinogen Ur Leukocyte Esterase Salicylates Urine Opiates Screen Ur Methadone, Qual Acetaminophen Urine Barbiturates Ur Phencyclidine (PCP) U Amphetamin/Meth Scrn MDMA (Ecstasy) Screen U Benzodiazepines Scrn Ur Cocaine Metabolite U Marijuana (THC) Screen U Marijuana THC Carboxy 35 H Drug Screen Comment SEE NOTE Ethyl Alcohol mg/dL COVID-19 Eval Order Cancelled SARS-CoV-2 (PCR) NEGATIVE Hospital Course (1) Mood disorder: 04/08/21--continue current meds and treatment plan. Reviewed care by Dr. Rivers in italics: The patient was admitted to the [facility] ([facility] unit) on every 15 minute checks (behavioral with suicide precautions for safety. The patient will participate in group, recreational, and milieu therapies and will be offered additional individual and family sessions as clinically appropriate. 04/07/2021we will start patient on 10 mg of Prozac today, increase to 20 mg p.o. every morning tomorrow. We will also add lorazepam to her regimen on a as needed basis to address his anxiety while up titrating the dose of SSRI. Mental Health & Subst Abuse Tx Psychiatrist Name of Psychiatrist: Ellis Singh Psychiatrist's Psychiatric Appointment Comment: Call to schedule post-discharge appointment [facility]. Psychiatrist Release of Information: Obtained, Reviewed and Signed Therapist Name of Therapist: Ellis Braxton Therapist's Therapy Appointment Comment: Call to schedule post-discharge appointment [facility]. Therapist Release of Information: Obtained, Reviewed and Signed Post Discharge Appointments Contact Information Discharge Discharge Address: [address] [place] [id number] Discharge Plan Discharge Items Patient Disposition: Home - Self-Care Reason For Visit: OVERDOSE ATTEMPT, MDD Discharge Diagnosis: depressive disorder Activity: Resume your previous activity Non-emergency contact: Psychiatrist and Therapist Call non-emergency contact if: you have any medication questions and your symptoms worsen Follow-up/Referrals: PCP,NO [Primary Care Provider] - Diet: Regular Addtl Attending Provider Instructions: SPECIAL CARE INSTRUCTIONS: 1. Follow through with your scheduled aftercare appointments. If unable to keep an appointment, please call to reschedule. 2. Take your medication only as prescribed. Medication should not be changed or stopped without the approval of your doctor. In the event of worsening symptoms or concerns about side effects, contact your doctor immediately. 3. Utilize new healthy coping skills, anger management skills, and stress management skills learned during your hospitalization. Journal feelings and process them with a support person. Identify stressors or situations that may result in relapse, deterioration or inappropriate behaviors and develop a plan to deal with those issues. 4. If your coping skills are ineffective and you are in crisis, contact your outpatient providers for direction. If unable to reach your providers, please call the [facility] CRISIS LINE AT , go to the [facility] walk-in center at [address] [place] [address], [address], [place], or go to the closest Emergency Room. 5. Avoid alcohol and un-prescribed drugs. 6. You have been provided with the Mental Health Advance Directives Pamphlet for your review. 7. Your condition is stable for discharge to outpatient level of care, but recovery is an ongoing process. Ifthoughts to harm yourself or others return, follow the safety plan developed during your stay. Planning for a safe return home includes securing weapons. Our treatment team recommends weaponsbe removed from the home until your outpatient provider reassesses your progress. In rare cases where the items themselvescannot be removed, guns and ammunitionshould be secured separatelyand keys stored by a reliable personoutside of the home. If you were admitted on an involuntary commitment, the police or other legal authorities may be involved in this process. AFTERCARE APPOINTMENTS: * Please call your insurance company prior to your scheduled appointment to confirm your aftercare providers are covered. Take your insurance information to your appointments. WHO TO CALL AND WHEN: Medical Emergencies: For questions or emergencies related to your hospital stay, please contact the Inpatient Behavioral Health Unit at [phone]. [place] police is on-call 18/02 for the Behavioral Health Unit for emergencies At any time you feel your situation is an emergency, you may also call 911 immediately. Pending Studies at Discharge: No Stand-Alone Forms: [facility], Smoking Cessation Medications and DC Order Prescriptions: New fluoxetine 20 mg Capsule 20 mg PO QAM 30 Days Qty: 30 RF: 0 Discontinued hydroxyzine HCl 25 mg tablet 25 - 50 mg PO Q6 PRN (Reason: Anxiety) RF: 0 Discharge Orders: Discharge Order (Routine); Ordered 04/09/21 Ordered By: Vesna Bean Admission Data Admit Date/Time: 04/06/21 19:33 Attending Provider: Vesna Bean Admit Provider: Keon Rivers Primary Care Provider: PCP,NO Other Interventions: Discharge Summary Assessment (RN) Last Done: 04/09/21 13:55 PSY Interdisciplinary Discharge Planning Last Done: 04/09/21 13:51 Coding Level of Care Code 87790 D/C day mgmt > 30 min Diagnoses Mood disorder F39
== END 2021-04-09 15:09 | disposition home or self-care (01) | DRG 881 ==
LOC: ED 12:58 → 3S 19:33 → SUATTDRO 19:33 → 3S 19:46